=== PATIENT | female | born 1980 | race Caucasian/White ===

== ENCOUNTER 2021-03-20 09:19 | Day surgery (SDC) | payer OTHER ==
[~2021-03-20] VITALS: Ht 177.8 cm; Wt 81.8 kg
[2021-03-20 09:30] VITALS: BP 151/88
--- NOTE | 2021-03-20 09:30 | NUR ---
PATIENT AMBULATORY TO ROOM. ADMISSION ASSESSMENT COMPLETED AT THIS TIME. IV ESTABLISHED. LABS SENT FOR REFERNECE.. CONSENT OBTAINED. PAITNET ORIENTED TO ROOM AND UNIT. CALL LIGHT IN REACH. WILL CONTINUE TO MONITOR.
--- NOTE | 2021-03-20 10:45 | NUR ---
DR MONTALVO AT [facility] AT THIS TIME.
[2021-03-20] MEDS ORDERED: GABAPENTIN100 MG PO (11:17)
[2021-03-20] MEDS ORDERED: PRILOSEC OTC20 MG PO (11:18)
[2021-03-20] MEDS ORDERED: VENLAFAXINE HCL75 M1 PO (11:18)
[2021-03-20 11:22] LABS: HEMATOCRIT 34.8 % (37.0-47.0); IMMATURE GRANULOCYTES 0.2 % (0.0-5.0); MEAN CELL VOLUME 83.3 fL CALC (80.0-100.0); MEAN CORPUSCULAR HGB 26.3 pG CALC (26.0-32.0); MEAN CORPUSCULAR HGB CONC 31.6 g/dL CAL (32.0-36.0); NEUT# 3.25 thou/uL (2.00-7.15); RED BLOOD COUNT 4.18 mill/uL (4.20-5.60)
[2021-03-20 11:53] LABS: ALKALINE PHOSPHATASE 189 u/l (38-126); BILIRUBIN, TOTAL 0.8 mg/dL (0.0-1.4); BUN 8 mg/dL (7-17); BUN/CREATININE RATIO 13 (12-20 (CALC)); CARBON DIOXIDE 26 mmol/l (22-30); CHLORIDE 105 mmol/l (95-108); CREATININE 0.6 mg/dL (0.5-1.0); GFR > 60 ML/MIN (>=60 (CALC)); GFR FOR AFR.AMER. > 60 ML/MIN (>=60 (CALC)); POTASSIUM 4.8 mmol/l (3.5-5.1); SGOT/AST 47 u/l (14-36); TOTAL PROTEIN 7.4 g/dL (6.3-8.2)
[2021-03-20 11:55] LABS: ANION GAP 13 (6-22 (CALC)); SODIUM 139 mmol/l (137-146)
[2021-03-20] MEDS ORDERED: KLONOPIN0.5 MG PO (13:54)
[2021-03-20] MEDS ORDERED: CLONIDINE0.1 MG PO (13:54)
[2021-03-20] MEDS ORDERED: NALTREXONE50 MG PO (13:55)
--- NOTE | 2021-03-20 17:20 | NUR ---
REPORT RECIEVED FROM URMILA MOREL PT ARRIVED VIA STRECTHER SLEEPING WITH LR FLUIDS INFUSING AT 50. CALL LIGHT WITHIN REACH
--- NOTE | 2021-03-20 17:30 | NUR ---
PT ASLEEP IN BED AT THIS TIME. BREATHING IS EVEN AND UNLABORED. BED ALARM IS ACTIVATED. FALL/SAFTEY PRECAUTIONS ARE IN PLACE. CALL LIGHT WITHIN REACH.
[2021-03-20 18:05] VITALS: BP 156/95
--- NOTE | 2021-03-20 18:13 | NUR ---
TRIED TO REVIEW POST OP VITALS FROM PT. MACHINE DESIGNER FROM [facility] DID NOT POST VITALS. NESTOR PETTIT DID A SET OF VITALS AT 1805 TEMP: 96.9 HR: 70, RR: 22, BP: 156/95, SPO2: 92.
--- NOTE | 2021-03-20 18:20 | NUR ---
PT STILL SLEEPING AT THIS TIME. BREATHING IS EVEN AND UNLABORED. NO DISTRESS NOTED. CALL LIGHT WITHIN REACH, BED ALARM ACTIVATED. FALL/SAFTEY PRECAUTIONS IN PLACE.
--- NOTE | 2021-03-20 19:42 | NUR ---
REPORT RECEIVED FROM URMILA PILLAI. PT RESTING IN BED SEMI FOWLERS WITH EYES CLOSED. TACHYPNEIC WITH EVEN AND UNLABORED REPIRATIONS AT 45 PER MINUTE; OXYGEN ON AT 3L VIA NC; SPO2 86-91; PT BREATHING PROMINENTLY FROM MOUTH. REPOSITIONS SLIGHTLY AND GROANS DURING MOVEMENT, BUT DOES NOT FULLY WAKE UP AND KEEPS EYES CLOSED. OCCASIONAL YAWNING NOTED. #18 IV TO RFA WITH LR INFUSING AT 50 ML/HR; FLUIDS DISCONTINUED AT THIS TIME DUE TO BREATHING; LUNGS SOUND CLEAR ANTERIORLY. #20 IV TO LAC SALINE LOCKED. SAFETY MEASURES IN PLACE INCLUDING BED ALARM. CALL LIGHT WITHIN REACH. WILL CONTINUE TO MONITOR.
--- NOTE | 2021-03-20 20:12 | NUR ---
PT YELLED FOR ASSISTANCE TO VOID; UNABLE TO HOLD HERSELF IN SITTING POSITION ON SIDE OF BED DUE TO LETHARGY, SO ASSISTED ONTO BED WILLETT; UNABLE TO VOID AFTER 15 MINUTES, PT IS ON MENSTRUAL CYCLE; TAMPON REMOVED AT THIS TIME. BRIEF APPLIED. PT ASSISTED WITH REPOSITIONING.
--- NOTE | 2021-03-20 21:03 | NUR ---
CONTINUES TO BE RESTLESS AND STATING THAT SHE HAS TO URINATE,BUT SHE CANT. BLADDER SCAN OF >600ML. PT STRAIGHT CATHED AT THIS TIME WITH URINARY OUTPUT OF 750 ML. PT REPORTS THAT SHE FEELS BETTER; NOW RESTING MORE CALMLY.
[2021-03-20 23:27] VITALS: BP 149/66
--- NOTE | 2021-03-20 23:38 | NUR ---
CLONIDINE GIVEN WITH ENCOURAGEMENT; PT REMAINS VERY LETHARGIC. OXYGEN WAS REMOVED BY PATIENT; SPO2 92-94% ON ROOM AIR. RESPIRATORY RATE RANGES FROM 26-40; IRREGULAR, BUT UNLABORED. LARGE INCONTINENT FORMED BOWEL MOVEMENT; HYGIENE PROVIDED.
[2021-03-21 03:47] VITALS: BP 161/74
--- NOTE | 2021-03-21 04:05 | NUR ---
LINENES CHANGED; PT HAD 2 MORE INCONTINENT BOWEL MOVEMENTS AND INCONTINENT OF LARGE VOID. REMAINS MOSTLY LETHARGIC AND A MAXIMUM ASSIST IN BED. AM MEDICATIONS GIVEN; NEEDS ASSISTANCE TO TAKE MEDICATIONS. BREATHING HAS NORMALIZED; SPO2 93% ON ROOM AIR. LAB AT BEDSIDE.
[2021-03-21 05:58] LABS: ALBUMIN 3.9 g/dL (3.2-5.0); ALKALINE PHOSPHATASE 228 u/l (38-126); ANION GAP 13 (6-22 (CALC)); BILIRUBIN, TOTAL 0.6 mg/dL (0.0-1.4); BUN 6 mg/dL (7-17); BUN/CREATININE RATIO 11 (12-20 (CALC)); CARBON DIOXIDE 26 mmol/l (22-30); CHLORIDE 101 mmol/l (95-108); CREATININE 0.6 mg/dL (0.5-1.0); GFR > 60 ML/MIN (>=60 (CALC)); GFR FOR AFR.AMER. > 60 ML/MIN (>=60 (CALC)); MAGNESIUM 2.5 mg/dL (1.6-2.3); SGOT/AST 43 u/l (14-36); SODIUM 136 mmol/l (137-146); TOTAL PROTEIN 7.2 g/dL (6.3-8.2)
[2021-03-21 07:32] VITALS: BP 133/73
--- NOTE | 2021-03-21 07:50 | NUR ---
PT SLEEPING AT THIS TIME. VITALS ALLOWED AT THIS TIME. PT HAS TWO IV SITES 18G ON THE RFA. 20 LAC WERE BOTH FLUSHED AND NO RESISTANCE. UPON AWAKENING ASSESSMENT ALLOWED AT THIS TIME. LUNG SOUNDS CLEAR UPPER LOWER LOBES A&P. BREATHING EVEN AND UNLABORED. HEART SOUNDS REGULAR. RADIAL PULSE WEAK AND PEDAL PULSE WEAK. EDEMA ON LOWER FEET BILATERALLY. BOWEL SOUNDS ACTIVE X4. SKIN WDI. BED ALARM ACIVATED PT STATES NO PAIN. CALL LIGHT WITHIN REACH. FALL/ SAFTEY PRECAUTIONS IN PLACE.
--- NOTE | 2021-03-21 12:00 | NUR ---
PT SLEEPING AT THIS TIME. BREATHING IS EVEN AND UNLABORED. BED ALARM ACTIVATED. IV LAC 20G PATENT. 18G RFA PT TORE OFF. NO OTHER DISTRESS NOTED. CALL LIGHT WITHIN REACH.
[2021-03-21 16:16] VITALS: BP 135/69
--- NOTE | 2021-03-21 16:31 | NUR ---
PT SLEEPING IN BED. BREATHING EVEN AND UNLABORED. NO DISTRESS NOTED. BED ALARM ACTIVATED. FALL/SAFTEY PRECAUTIONS IN PLACE. CALL LIGHT WITHIN REACH
--- NOTE | 2021-03-21 16:49 | NUR ---
Discharge instructions given. Patient verbalizes understanding of same. Discharged in stable condition via Wheelchair to Home with [facility] staff MR. PARKER . All belongings sent with pt DC INSTRUCTION/PACKET GIVEN TO PT. BOTH IV REMOVED EVERYTHING INTACT.
== END 2021-03-21 16:48 | disposition home or self-care (01) | DRG 897 ==
LOC: ANR 09:19 → MS2 09:23 → ANR 15:31
PROVIDERS: ATTEND Anesthesiology
DX: F11.20 Opioid dependence, uncomplicated (principal)
CPT/HCPCS: J2354; J3475